=== PATIENT | male | born 1990 | race African-American/Black ===

== ENCOUNTER 2019-04-23 10:55 | Emergency (ER) | payer SELFPAY ==
[~2019-04-23] VITALS: Ht 165.1 cm; Wt 77.1 kg
[2019-04-23 11:13] VITALS: BP 129/74
--- NOTE | 2019-04-23 11:38 | NUR ---
DR. BARTLETT AT BEDSIDE FOR EVAL.
[2019-04-23] MEDS ORDERED: LIDOCAINE /MPF 1% VIAL 5 ML VIAL ONE (11:51)
[2019-04-23] MEDS ORDERED: CEFTRIAXONE 500 MG VIAL ONE (11:51)
[2019-04-23] MEDS ORDERED: AZITHROMYCIN 250 MG TABLET ONE ×2 (11:51→11:57)
[2019-04-23] MEDS ORDERED: AZITHROMYCIN 250 MG TABLET PO ONE (12:00)
[2019-04-23] MEDS ORDERED: CEFTRIAXONE 500 MG VIAL IM ONE (12:00)
--- NOTE | 2019-04-23 12:09 | NUR ---
Patient discharged to home in stable condition. Written and verbal after care instructions given. Patient verbalizes understanding of instruction.
== END 2019-04-23 12:13 | disposition home or self-care (01) ==
LOC: ER 11:00
DX: S46.812A Strain of other muscles, fascia and tendons at shoulder and upper arm level, left arm, initial encounter (principal); N34.2 Other urethritis; Z98.890 Other specified postprocedural states; X58.XXXA Exposure to other specified factors, initial encounter; Y93.89 Activity, other specified; Y92.89 Other specified places as the place of occurrence of the external cause; Y99.8 Other external cause status
CPT/HCPCS: 96372; 99283; J0696; J3490